=== PATIENT | female | born 1980 | race Asian ===

== ENCOUNTER 2018-03-28 05:03 | Day surgery (SDC) | payer BC, OTHER ==
[2018-03-24 19:28] VITALS: BMI 27.4
[2018-03-28] MEDS ORDERED: MIDAZOLAM HCL 2 MG/2 ML SINGLE DOSE VIAL ONE ×2 (13:04→13:36)
--- NOTE | 2018-03-28 13:19 | HP ---
Past Medical History - Primary Care Physician PCP:: Aneudy Telles - Admission Chief Complaint: vaginal cyst History of Present Illness: 37 yo f with hx of 2 vaginal cyst, hoyos duct cyst admitted for excision of vaginal cyst History Source: Patient Limitations to Obtaining History: No Limitations - Past Medical History ...: 2 ...Para: 2 Endocrine: Yes: Hypothyroidism - Past Surgical History Hx Myomectomy: No Hx Transabdominal Cerclage: No - Smoking History Smoking history: Never smoked Have you smoked in the past 12 months: No - Alcohol/Substance Use Hx Alcohol Use: No - Social History Usual Living Arrangement: Yes: With Spouse History of Recent Travel: No Home Medications - Allergies Allergies/Adverse Reactions: Allergies Allergy/AdvReac Type Severity Reaction Status Date / Time shellfish derived Allergy Mild Itching Verified 03/28/18 10:03 No Known Drug Allergies Allergy Unknown Verified 03/28/18 10:03 - Home Medications Home Medications: Ambulatory Orders Levothyroxine [Synthroid -] 75 mcg PO DAILY@0700 #1 tablet 03/05/14 Acetaminophen [Tylenol .Regular Strength -] 325 mg PO Q4HWA PRN 03/24/18 Review of Systems - Review of Systems Constitutional: reports: No Symptoms HENT: reports: No Symptoms Neck: reports: No Symptoms Cardiovascular: reports: No Symptoms Respiratory: reports: No Symptoms Gastrointestinal: reports: No Symptoms Genitourinary: reports: No Symptoms Breasts: reports: No Symptoms Reported Musculoskeletal: reports: No Symptoms Neurological: reports: No Symptoms Hematology/Lymphatic: reports: No Symptoms Psychiatric: reports: No Symptoms Physical Exam-[employer] Vital Signs: Vital Signs Temperature 98.4 F 03/28/18 10:05 Pulse Rate 96 H 03/28/18 10:05 Respiratory Rate 16 03/28/18 10:05 Blood Pressure 134/87 03/28/18 10:05 O2 Sat by Pulse Oximetry (%) 99 03/28/18 10:06 Constitutional: Yes: Well Nourished, No Distress, Calm Eyes: Yes: WNL, Conjunctiva Clear, EOM Intact HENT: Yes: WNL, Atraumatic, Normocephalic Neck: Yes: WNL, Supple, Trachea Midline Cardiovascular: Yes: WNL, Regular Rate and Rhythm Respiratory: Yes: WNL, Regular, CTA Bilaterally Gastrointestinal: Yes: WNL ...Rectal Exam: Yes: WNL Renal/: Yes: WNL Vaginal Exam: Yes: Other (2 clear cyst seen in vaginal wall,post area) Cervix: Yes: Normal Breast(s): Yes: WNL Musculoskeletal: Yes: WNL Extremities: Yes: WNL Integumentary: Yes: WNL Neurological: Yes: WNL, Alert, Oriented ...Motor Strength: WNL Psychiatric: Yes: WNL, Alert, Oriented Problem List - Problem (1) Maximus duct, 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
[2018-03-28] MEDS ORDERED: LIDOCAINE HCL 1%, 10 MG/ML (20ML VIAL) NR ONE ×2 (13:45)
[2018-03-28] MEDS ORDERED: ONDANSETRON 4 MG/2 ML VIAL IVPUSH PRN (14:53)
[2018-03-28] MEDS ORDERED: IBUPROFEN 800 MG/8 ML IJ IVPB PRN (14:53)
[2018-03-28] MEDS ORDERED: IBUPROFEN 600 MG TABLET (FP) PO PRN (14:53)
[2018-03-28] MEDS ORDERED: oxyCODONE HCL 5 MG TABLET PO PRN (14:53)
[2018-03-28] MEDS ORDERED: ELECTROLYTE-148 SOLN 1,000 ML IV SCH (15:00)
[2018-03-28 15:42] VITALS: BP 133/78; PULSE 92; TEMP 98.2
[2018-03-28] MEDS ORDERED: LACTATED RINGERS SOLUTION 1,000 ML IV SCH (15:45)
--- NOTE | 2018-03-31 06:04 | OP ---
DATE OF OPERATION: 03/28/2018 PREOPERATIVE DIAGNOSIS: Maximus duct vaginal cyst. POSTOPERATIVE DIAGNOSIS: Maximus duct vaginal cyst. PROCEDURE: Excision of the Maximus duct cyst. SURGEON: Aneudy Telles MD ANESTHESIA: General. ESTIMATED BLOOD LOSS: 15 mL. OPERATION: Patient was taken to the operating room. Under adequate general anesthesia in dorsal lithotomy position examination under anesthesia revealed a 3-cm suburethral cyst in the anterior vaginal mucosa. The cervix was clean, no lesion. The uterus was normal size. Adnexa: No masses were palpable. Then a straight catheter was inserted into the bladder and the urethra was identified and then with a scalpel the vaginal cyst was excised and then hemostasis was established and then the vaginal mucosa was closed with 3-0 chromic mattress suture. Patient tolerated procedure well, left the OR in good condition. Mónica [id number]
--- NOTE | 2018-03-31 18:22 | PATH ---
Surgical Pathology Report Patient Name: DAVI KNOWLES [facility]. Rec. #: [id number] /Age/Gender: 1980 (Age: 37) / F Account: [id number] Location: [facility] SURGICAL Taken: 03/28/2018 Received: 03/29/2018 Reported: 03/31/2018 Physicians: Aneudy Telles M.D. Specimen(s) Received VAGINAL CYST Clinical History Vaginal cyst Final Diagnosis VAGINAL CYST, EXCISION:CONSISTENT WITH BENIGN MULLERIAN/MUCOUS CYST. Electronically Signed Jennifer Guzman M.D. Gross Description Received in formalin labeled "vaginal cyst," is a 2.5 x 1.3 x 0.5 cm oh, disrupted cyst admixed with abundant oh mucoid material. The specimen is bisected and entirely submitted in one cassette. /03/30/2018 saudi03/30/2018
== END 2018-03-28 15:40 | disposition home or self-care (01) ==
LOC: JASU-SURG 05:03
PROVIDERS: ATTEND Obstetrics & Gynecology
PROC: 0UBG0ZZ Excision of Vagina, Open Approach (ICD-10-PCS; principal; 2018-03-28 11:00)
DX: Q52.4 Other congenital malformations of vagina (principal)
CPT/HCPCS: 84703; 94760